=== PATIENT | female | born 1950 | race Two or more races ===

== ENCOUNTER 2021-10-21 18:31 | Emergency (ER) | payer OTHER ==
[~2021-10-21] VITALS: Ht 149.9 cm; Wt 75.7 kg
[2021-10-21] MEDS ORDERED: LEVOTHYROXINE88 MCG PO (18:48)
[2021-10-21] MEDS ORDERED: ADMELOG100 UNIT/1 SQ (18:48)
[2021-10-21] MEDS ORDERED: INVOKANA300 MG PO (18:48)
[2021-10-21] MEDS ORDERED: CARVEDILOL12.5 M1 PO (18:49)
[2021-10-21] MEDS ORDERED: CANDESARTAN CIL16 MG PO (18:49)
[2021-10-21] MEDS ORDERED: ATORVASTATIN CA40 MG PO (18:49)
[2021-10-21] MEDS ORDERED: LANTUS SOL100 UNIT/1 SQ (18:49)
[2021-10-21] MEDS ORDERED: XOPENEX0.63 MG/3 IH (20:06)
[2021-10-21] MEDS ORDERED: ACETAMINOPHEN650 M2 PO (20:06)
[2021-10-21] MEDS ORDERED: MUCINEX DM ER1 EAC1 PO (20:06)
[2021-10-21] MEDS ORDERED: VITAMIN C WIT1000 MG PO (20:06)
[2021-10-21] MEDS ORDERED: ZYRTEC10 MG PO (20:06)
[2021-10-21] MEDS ORDERED: MOLNUPIRAVIR (200 MG PO (20:06)
== END 2021-10-21 20:29 | disposition home or self-care (01) ==
LOC: ER 18:31
DX: U07.1 COVID-19 (principal); Z88.0 Allergy status to penicillin